=== PATIENT | male | born 1985 | race Caucasian/White ===

== ENCOUNTER → 2016-11-13 | Outpatient (CLI) | payer BC ==
[~2016-11-13] MED LIST: DIPH25TA24 PO
--- NOTE | 2016-11-13 08:16 | DIAGNOSTIC IMAGING REPORT ---
DOUBLE CONTRAST BARIUM ESOPHAGRAM CLINICAL HISTORY: Globus sensation. COMPARISON STUDY: No priors. TECHNIQUE: A standard air contrast barium esophagram is performed. Multiple spot images of the esophagus are acquired both upright and prone. FINDINGS: The patient swallowed barium and the barium pill without difficulty. The mucosal pattern is normal. There is no evidence of intrinsic or extrinsic mass lesion. No aspiration was seen. The gastroesophageal junction distended normally. No gastroesophageal reflux could be elicited by having the patient perform the Valsalva maneuver. Fluoroscopy time: 1 minute. Fluoroscopic images: 23 IMPRESSION: Normal barium esophagram. Electronically signed by: Bhargav Sam M.D. 11/13/2016 8:14 AM Dictated Date/Time: 11/13/2016 8:13 AM
== END | disposition home or self-care (01) ==
LOC: C.RAD 07:25
PROVIDERS: ATTEND Nurse Practitioner Family
DX: F45.8 Other somatoform disorders (principal)

== ENCOUNTER 2018-08-08 12:47 | Observation (INO) ==
[2018-08-08 14:57] LABS: Basophils # (auto) 0.02 K/uL (0-0.2); Basophils % (auto) 0.3 %; Eosinophils # (auto) 0.03 K/uL (0-0.5); Eosinophils % (auto) 0.4 %; Hematocrit (blood only) 47.8 % (42-52); Hemoglobin 17.5 g/dL (14.0-18.0); Immature Granulocytes # (auto) 0.01 K/uL (0.00-0.02); Immature Granulocytes % (auto) 0.1 %; Lymphocytes # (auto) 1.07 K/uL (1.2-3.4); Lymphocytes % (auto) 15.5 %; Mean Corpuscular Hgb Conc 36.6 g/dL (32-36); Mean Corpuscular Volume 89.5 fL (80-100); Mean Platelet Volume 9.7 fL (7.4-10.4); Monocytes # (auto) 0.53 K/uL (0.11-0.59); Monocytes % (auto) 7.7 %; Neutrophils # (auto) 5.24 K/uL (1.4-6.5); Platelet Count 179 K/uL (130-400); RDW Coefficient of Variation 12.3 % (11.5-14.5); RDW Standard Deviation 39.6 fL (36.4-46.3); Red Blood Count 5.34 M/uL (4.7-6.1)
[2018-08-08 15:05] LABS: Albumin Level 4.3 gm/dl (3.4-5.0); BUN Creatinine Ratio 13.6 (10-20); Calcium 9.3 mg/dl (8.5-10.1); Creatinine Clr Calc Pharmacy 126.8 ml/min; Est GFR (African American) 123.7; Est GFR (Non-African American) 106.7
[2018-08-08 15:08] LABS: Albumin Globulin Ratio 1.1 (0.9-2); Bilirubin,Total 0.7 mg/dl (0.2-1); Globulin 3.9 gm/dl (2.5-4.0); Total Protein 8.2 gm/dl (6.4-8.2)
[2018-08-08] MEDS ORDERED: SODIUM CHLORIDE 0.9% 1000ML 1,000 ML IV ONE (15:11)
[2018-08-08] MEDS ORDERED: raNITIdine 50 MG/102 ML BAG IV STA (15:11)
[2018-08-08] MEDS ORDERED: DEXAMETHASONE **PF** INJ 10 MG/ML VIAL IV ONE (15:11)
[2018-08-08] MEDS ORDERED: DiphenhydrAMINE HCL 50 MG/ML VIAL IV STA (15:11)
--- NOTE | 2018-08-08 15:36 | Emergency Department Note ---
ED Provider Note CHIEF COMPLAINT: URI symptoms, facial swelling HISTORY OF PRESENTING ILLNESS: This is a 33-year-old male who presents to the emergency department with complaint of cough and cold symptoms for the past 2 days facial swelling that started this morning. Patient states that he had difficulty sleeping last night and when he woke up this morning he noticed that his lower lip was swollen. He took some Benadryl and went back to bed. He says when he woke up around noon today his whole face was swollen, he again took about 25 mg of Benadryl. He has had symptoms of cough, congestion, sore throat, fevers/chills and body aches. There have been several people at home sick with the same types of symptoms. He states that he had a similar reaction a few years ago when he got sick with a cold and developed facial swelling at that time, he states he was treated with Benadryl and a steroid. He denies any hives, rash, or itching. He denies any throat swelling or difficulty breathing , wheezing, chest pain or tightness, dizziness or syncope. He denies any headaches, vision changes, neck pain or stiffness, back pain, abdominal pain, nausea or vomiting, urinary symptoms. REVIEW OF SYSTEMS: A complete 10 point review of systems was reviewed with the patient with pertinent positives and negatives as per history of present illness. All else were negative. PAST MEDICAL HISTORY: Anxiety, history of wisdom tooth extraction, history of vasectomy SOCIAL HISTORY: Lives at home with family, he denies tobacco use ALLERGIES: No known allergies PHYSICAL EXAM: CONSTITUTIONAL: Pleasant and cooperative. No acute distress. Well appearing and well nourished. HEENT: Normocephalic, atraumatic. Mild bilateral periorbital swelling noted. Moderate swelling of the lower lip, upper lip appears normal. No tongue swelling. PERRL, EOMI. TMs normal. Pharynx is erythematous with mild bilateral tonsillar edema, but no exudate seen. No uvular deviation, no trismus. Airway patent. Moist mucous membranes. NECK: Supple, full active range of motion without discomfort. No stridor on auscultation. Bilateral submandibular and anterior cervical adenopathy, tender to palpation. No posterior adenopathy. No nuchal rigidity or meningismus. RESPIRATORY: Clear to auscultation bilaterally with no wheezing, crackles, rhonchi or stridor. Equal expansion bilaterally. CARDIOVASCULAR: Regular rate and rhythm with no murmurs, rubs or gallops. Normal peripheral perfusion. No edema. GASTROINTESTINAL: Soft, nontender, nondistended. No palpable masses or HSM. Bowel sounds present in all quadrants. MUSCULOSKELETAL: Full range of motion of all joints without discomfort. INTEGUMENTARY: No rash or other significant dermatologic conditions noted. NEUROLOGIC: Alert and oriented X 4 with normal affect. No focal neurologic deficits noted. Normal strength and sensation intact light touch in all 4 extremities. Normal speech. Normal gait observed. ED COURSE AND MEDICAL DECISION MAKING: CC: Patient presenting with complaint of URI symptoms, facial swelling DIFFERENTIAL DIAGNOSIS: Includes, but not limited to allergic reaction, anaphylaxis, angioedema, viral URI, bronchitis, strep pharyngitis, mononucleosis , mumps, influenza, among others. INTERPRETATION OF LABS: No leukocytosis, no anemia, normal platelets, no significant electrolyte abnormalities, normal renal function, normal liver enzymes UA negative. Influenza negative. Rapid strep negative, culture pending. Monospot negative. IMAGING: Study: CT soft tissue neck HISTORY:: Abscess. Pain. Edema. FINDINGS: The major salivary glands are symmetric and unremarkable. The parotid and submandibular glands are unremarkable. Several reactive cervical nodes measuring up to 1.5 cm are present bilaterally. Moderate soft tissue edematous change of the posterior oropharynx and hypopharyngeal region. Moderate narrowing of the airway. No significant hypopharyngeal distention. The glottic and subglottic regions are unremarkable. No evidence for drainable abscess or collection. The pulmonary apices are considered clear. IMPRESSION: 1. Nonspecific soft tissue edematous change of the posterior oral and hypopharynx. 2. No evidence for abscess or collection. 3. Mild reactive cervical adenitis. 4. Mild/moderate narrowing of the hypopharyngeal airway MEDICATION RECONCILIATION: I attest that I have personally reviewed the patient 's current medication list. INITIAL VITAL SIGNS REVIEW: I reviewed the patient's initial vital signs and interpret them as follows: T: Afebrile; BP: Hypertensive; HR: Mildly tachycardic; RR: Within normal limits; Pulse Ox: Within normal limits on room air. Blood pressure screening: The patient was found to have an elevated blood pressure, which was felt to be situational. MDM SUMMARY: Patient was evaluated at bedside, history and physical exam performed. Patient is alert and oriented, in no acute distress, resting calmly in stretcher. No respiratory distress. Lungs are clear. No stridor. Airway is patent. There is mild bilateral periorbital swelling and moderate lower lip swelling. Orders were placed at bedside for labs, IV fluid bolus for hydration, IV Benadryl 50 mg, IV ranitidine 50 mg, and IV Decadron 10 mg. Labs reviewed as above and unremarkable. Patient has been reassessed multiple times during his emergency department stay , he has remained hemodynamically stable and afebrile. The patient has been monitored for several hours and continues to improve after the above treatment, but does have some residual lip and facial swelling. He continues to deny any throat tightness, wheezing, or shortness of breath. Patient discussed with Dr. Abernathy, who also evaluated the patient. He did recommend performing additional testing with a CT soft tissue neck, and felt the patient should be admitted for observation due to persistent symptoms of angioedema. CT shows no evidence of abscess or fluid collection, reactive cervical adenitis , and mild to moderate narrowing of the hypopharyngeal airway. Dr. Abernathy spoke with Dr. Packer, [facility] Hospitalist, who agreed to admit the patient for further observation and workup of angioedema. Patient reassessed multiple times throughout ED stay, he has remained hemodynamically stable and afebrile, and his swelling has improved, though still not fully resolved. The patient and his were updated on all results and plan for admission, they verbalized understanding and were agreeable to this plan. Patient was stable at time of admission. The chart was completed utilizing [employer] Speech voice recognition software. Grammatical errors, random word insertions, pronoun errors, and incomplete sentences are an occasional consequence of this system due to software limitations, ambient noise, and hardware issues. Any formal questions or concerns about the content, text, or information contained within the body of this dictation should be directly addressed to the nurse practitioner for clarification. Impression & Plan Angioedema Past Med/Surg History Social History Current Living Situation: Spouse Other Information That Helps Us Care for You: No Feels Safe at Home: Yes Safety Concerns: Feels Safe At This Time Smoking Status: Never smoker Do You Dip or Chew Tobacco: No Second Hand Exposure: No Hx Alcohol Use: No Hx Substance Use: No Beliefs That Will Affect Care: None Preferred Language: Bahamian Communication Ability: Effective Sap Portal Developer Required: No Results & Data Vital Signs Vital Signs - 24 hr 08/08/18 21:00 08/08/18 21:01 08/08/18 21:31 Temperature Temperature Source Pulse Rate 117 H 113 H 110 H Pulse Rate [Right Finger] Respiratory Rate 18 16 15 Respiratory Effort / Characteristics Respiratory Depth Respiratory Pattern Blood Pressure 136/94 146/98 H Blood Pressure [Left Arm] Blood Pressure Mean 108 114 Blood Pressure Mean [Left Arm] Blood Pressure Position [Left Arm] Pulse Oximetry 92 93 94 Oxygen Delivery Method 08/08/18 21:40 08/08/18 22:00 08/08/18 22:02 Temperature Temperature Source Pulse Rate 116 H 114 H 105 H Pulse Rate [Right Finger] Respiratory Rate 14 14 16 Respiratory Effort / Characteristics Respiratory Depth Respiratory Pattern Blood Pressure 137/88 Blood Pressure [Left Arm] Blood Pressure Mean 104 Blood Pressure Mean [Left Arm] Blood Pressure Position [Left Arm] Pulse Oximetry 95 95 94 Oxygen Delivery Method Room Air 08/08/18 22:48 08/09/18 07:13 08/09/18 15:14 Temperature 36.6 C 36.4 C L 36.5 C Temperature Source Oral Oral Oral Pulse Rate Pulse Rate [Right Finger] 106 H 90 106 H Respiratory Rate 18 18 20 Respiratory Effort / Characteristics Non-Labored Spontaneous Respiratory Depth Normal Respiratory Pattern Regular Blood Pressure Blood Pressure [Left Arm] 126/74 121/81 133/77 Blood Pressure Mean Blood Pressure Mean [Left Arm] 91 94 95 Blood Pressure Position [Left Arm] Lying Pulse Oximetry 94 94 94 Oxygen Delivery Method Room Air Room Air Laboratory Data Result diagrams: 08/09/18 08:50 08/09/18 08:50 Lab Results 08/08/18 08/08/18 08/08/18 Range/Units 14:10 14:10 14:10 WBC 6.90 (4.8-10.8) K/uL RBC 5.34 (4.7-6.1) M/uL Hgb 17.5 (14.0-18.0) g/dL Hct 47.8 (42-52) % MCV 89.5 (80-100) fL MCH 32.8 (25-34) pg MCHC 36.6 H (32-36) g/dL RDW Std Deviation 39.6 (36.4-46.3) fL RDW Coeff of Waqar 12.3 (11.5-14.5) % Plt Count 179 (130-400) K/uL MPV 9.7 (7.4-10.4) fL Immature Gran % (Auto) 0.1 % Neut % (Auto) 76.0 % Lymph % (Auto) 15.5 % [place] % (Auto) 7.7 % Eos % (Auto) 0.4 % Baso % (Auto) 0.3 % Immature Gran # (Auto) 0.01 (0.00-0.02) K/uL Neut # (Auto) 5.24 (1.4-6.5) K/uL Lymph # (Auto) 1.07 L (1.2-3.4) K/uL [place] # (Auto) 0.53 (0.11-0.59) K/uL Eos # (Auto) 0.03 (0-0.5) K/uL Baso # (Auto) 0.02 (0-0.2) K/uL PT (9.0-12.0) Seconds INR (0.9-1.1) Sodium 137 (136-145) mmol/L Potassium 4.0 (3.5-5.1) mmol/L Chloride 103 (98-107) mmol/L Carbon Dioxide 28 (21-32) mmol/L Anion Gap 6.0 (3-11) BUN 13 (7-18) mg/dl Creatinine 0.93 (0.6-1.4) mg/dl Est Cr Clr Drug Dosing 126.8 ml/min Est GFR ( Amer) 123.7 Est GFR (Non-Af Amer) 106.7 BUN/Creatinine Ratio 13.6 (10-20) Glucose 92 (70-99) mg/dl Calcium 9.3 (8.5-10.1) mg/dl Total Bilirubin 0.7 (0.2-1) mg/dl AST 19 (15-37) U/L ALT 35 (12-78) U/L Alkaline Phosphatase 86 (45-117) U/L Total Protein 8.2 (6.4-8.2) gm/dl Albumin 4.3 (3.4-5.0) gm/dl Globulin 3.9 (2.5-4.0) gm/dl Albumin/Globulin Ratio 1.1 (0.9-2) Urine Color Urine Appearance (Clear) Urine pH (4.5-7.5) Ur Specific [place] (1.000-1.030) Urine Protein (Negative) Urine Glucose (UA) (Negative) Urine Ketones (Negative) Urine Blood (Negative) Urine Nitrite (Negative) Urine Bilirubin (Negative) Urine Urobilinogen (Negative) Ur Leukocyte Esterase (Negative) Urine RBC (0-4) /hpf Urine WBC (0-5) /hpf Ur Epithelial Cells (0-5) /lpf Urine Bacteria (Negative) Monoscreen Negative (Negative) Influenza Type A Ag (Neg) Influenza Type B Ag (Neg) 08/08/18 08/08/18 08/09/18 Range/Units 15:25 16:41 08:50 WBC (4.8-10.8) K/uL RBC (4.7-6.1) M/uL Hgb (14.0-18.0) g/dL Hct (42-52) % MCV (80-100) fL MCH (25-34) pg MCHC (32-36) g/dL RDW Std Deviation (36.4-46.3) fL RDW Coeff of Waqar (11.5-14.5) % Plt Count (130-400) K/uL MPV (7.4-10.4) fL Immature Gran % (Auto) % Neut % (Auto) % Lymph % (Auto) % [place] % (Auto) % Eos % (Auto) % Baso % (Auto) % Immature Gran # (Auto) (0.00-0.02) K/uL Neut # (Auto) (1.4-6.5) K/uL Lymph # (Auto) (1.2-3.4) K/uL [place] # (Auto) (0.11-0.59) K/uL Eos # (Auto) (0-0.5) K/uL Baso # (Auto) (0-0.2) K/uL PT 12.9 H (9.0-12.0) Seconds INR 1.3 H (0.9-1.1) Sodium (136-145) mmol/L Potassium (3.5-5.1) mmol/L Chloride (98-107) mmol/L Carbon Dioxide (21-32) mmol/L Anion Gap (3-11) BUN (7-18) mg/dl Creatinine (0.6-1.4) mg/dl Est Cr Clr Drug Dosing ml/min Est GFR ( Amer) Est GFR (Non-Af Amer) BUN/Creatinine Ratio (10-20) Glucose (70-99) mg/dl Calcium (8.5-10.1) mg/dl Total Bilirubin (0.2-1) mg/dl AST (15-37) U/L ALT (12-78) U/L Alkaline Phosphatase (45-117) U/L Total Protein (6.4-8.2) gm/dl Albumin (3.4-5.0) gm/dl Globulin (2.5-4.0) gm/dl Albumin/Globulin Ratio (0.9-2) Urine Color Yellow Urine Appearance Clear (Clear) Urine pH 6.5 (4.5-7.5) Ur Specific [place] <= 1.005 (1.000-1.030) Urine Protein Negative (Negative) Urine Glucose (UA) Negative (Negative) Urine Ketones Negative (Negative) Urine Blood Trace H (Negative) Urine Nitrite Negative (Negative) Urine Bilirubin Negative (Negative) Urine Urobilinogen Negative (Negative) Ur Leukocyte Esterase Negative (Negative) Urine RBC 0-4 (0-4) /hpf Urine WBC 0-5 (0-5) /hpf Ur Epithelial Cells 0-5 (0-5) /lpf Urine Bacteria Negative (Negative) Monoscreen (Negative) Influenza Type A Ag Neg for Influ A (Neg) Influenza Type B Ag Neg for Influ B (Neg) 08/09/18 08/09/18 Range/Units 08:50 08:50 WBC 8.93 (4.8-10.8) K/uL RBC 5.20 (4.7-6.1) M/uL Hgb 17.1 (14.0-18.0) g/dL Hct 46.3 (42-52) % MCV 89.0 (80-100) fL MCH 32.9 (25-34) pg MCHC 36.9 H (32-36) g/dL RDW Std Deviation 39.0 (36.4-46.3) fL RDW Coeff of Waqar 12.1 (11.5-14.5) % Plt Count 202 (130-400) K/uL MPV 9.7 (7.4-10.4) fL Immature Gran % (Auto) % Neut % (Auto) % Lymph % (Auto) % [place] % (Auto) % Eos % (Auto) % Baso % (Auto) % Immature Gran # (Auto) (0.00-0.02) K/uL Neut # (Auto) (1.4-6.5) K/uL Lymph # (Auto) (1.2-3.4) K/uL [place] # (Auto) (0.11-0.59) K/uL Eos # (Auto) (0-0.5) K/uL Baso # (Auto) (0-0.2) K/uL PT (9.0-12.0) Seconds INR (0.9-1.1) Sodium 137 (136-145) mmol/L Potassium 3.9 (3.5-5.1) mmol/L Chloride 103 (98-107) mmol/L Carbon Dioxide 29 (21-32) mmol/L Anion Gap 5.0 (3-11) BUN 17 (7-18) mg/dl Creatinine 0.97 (0.6-1.4) mg/dl Est Cr Clr Drug Dosing 120.0 ml/min Est GFR ( Amer) 117.6 Est GFR (Non-Af Amer) 101.4 BUN/Creatinine Ratio 17.2 (10-20) Glucose 137 H (70-99) mg/dl Calcium 9.3 (8.5-10.1) mg/dl Total Bilirubin (0.2-1) mg/dl AST (15-37) U/L ALT (12-78) U/L Alkaline Phosphatase (45-117) U/L Total Protein (6.4-8.2) gm/dl Albumin (3.4-5.0) gm/dl Globulin (2.5-4.0) gm/dl Albumin/Globulin Ratio (0.9-2) Urine Color Urine Appearance (Clear) Urine pH (4.5-7.5) Ur Specific [place] (1.000-1.030) Urine Protein (Negative) Urine Glucose (UA) (Negative) Urine Ketones (Negative) Urine Blood (Negative) Urine Nitrite (Negative) Urine Bilirubin (Negative) Urine Urobilinogen (Negative) Ur Leukocyte Esterase (Negative) Urine RBC (0-4) /hpf Urine WBC (0-5) /hpf Ur Epithelial Cells (0-5) /lpf Urine Bacteria (Negative) Monoscreen (Negative) Influenza Type A Ag (Neg) Influenza Type B Ag (Neg) Administered Medications Acetaminophen (Tylenol) 650 mg PO Q4H PRN PRN Reason: pain/fever Stop: 09/07/18 22:44 Last Admin: 08/09/18 06:33 Dose: 650 mg Admin: 08/08/18 23:57 Dose: 650 mg Fexofenadine HCl (Marie) 180 mg PO QAM EMILE Stop: 09/08/18 08:59 Last Admin: 08/09/18 08:22 Dose: 180 mg Heparin Sodium (Porcine) (Heparin Sodium (Porcine)) 5,000 units SQ Q12H EMILE Stop: 09/08/18 08:59 Last Admin: 08/09/18 08:32 Dose: Not Given Famotidine 20 mg/ Syringe 5 mls @ 2.5 mls/min IV Q12H EMILE Stop: 09/08/18 00:00 Last Admin: 08/09/18 12:01 Dose: 2.5 mls/min Admin: 08/09/18 00:03 Dose: 2.5 mls/min Discontinued Medications Dexamethasone Sodium Phosphate (Decadron Pf) 10 mg IV NOW ONE Stop: 08/08/18 15:12 Last Admin: 08/08/18 15:22 Dose: 10 mg Diphenhydramine HCl (Benadryl) 50 mg IV NOW STA Stop: 08/08/18 15:12 Last Admin: 08/08/18 15:21 Dose: 50 mg Ranitidine HCl (Zantac) 50 mg in 102 mls @ 200 mls/hr IV NOW STA Stop: 08/08/18 15:41 Last Infusion: 08/08/18 16:00 Dose: 0 mls/hr Admin: 08/08/18 15:27 Dose: 200 mls/hr Sodium Chloride (Nss 1000ml) 1,000 mls @ 999 mls/hr IV .Q1H1M ONE Stop: 08/08/18 16:11 Last Infusion: 08/08/18 16:03 Dose: 0 mls/hr Admin: 08/08/18 15:21 Dose: 999 mls/hr Methylprednisolone 60 mg/ (Syringe) 0.96 mls @ 1.92 mls/min IV Q8H EMILE Stop: 09/07/18 22:59 Last Admin: 08/09/18 06:34 Dose: 1.92 mls/min Admin: 08/08/18 23:56 Dose: 1.92 mls/min Ioversol (Optiray 320 125ml) 115 ml IV ONCE PRN PRN Reason: Interaction Checking Stop: 08/12/18 19:06 Last Admin: 08/08/18 19:08 Dose: 115 ml Discharge Plan Visit Data *Final* Discharge Date/Time: 08/08/18 22:06 Chief Complaint: Allergic Reaction Stated Complaint: ALLERGIC REACTION, FACIAL SWELLING ED Provider: Erasto Abernathy ED Midlevel Provider: Tisha Herring Discharge Problem: Angioedema Patient Disposition: Admitted As Inpatient Discharge Instructions Interventions: ED Discharge Assessment Last Done: 08/08/18 22:06
[2018-08-08 16:56] LABS: Appearance Urine Clear (Clear); Bilirubin Urine Negative (Negative); Color Urine Yellow; Glucose Urine UA Negative (Negative); Ketones Urine Negative (Negative); Leukocyte Esterase Urine Negative (Negative); Nitrite Urine Negative (Negative); Protein Urine Negative (Negative); Specific Gravity Urine <= 1.005 (1.000-1.030); Urobilinogen Urine Negative (Negative); pH Urine 6.5 (4.5-7.5)
[2018-08-08 17:01] LABS: Bacteria Urine Negative (Negative); RBC Urine 0-4 /hpf (0-4); WBC Urine 0-5 /hpf (0-5)
[2018-08-08] MEDS ORDERED: OPTIRAY 320 125ml IV PRN (19:07)
--- NOTE | 2018-08-08 19:14 | CT Scan Report ---
Study: CT soft tissue neck HISTORY:: Abscess. Pain. Edema. FINDINGS: The major salivary glands are symmetric and unremarkable. The parotid and submandibular gla nds are unremarkable. Several reactive cervical nodes measuring up to 1.5 cm are present bilaterally. Moderate soft tissue edematous change of the posterior oropharynx and hypopharyngeal region. Moderate narrowing of the airway. No significant hypopharyngeal distention. The glottic and subglottic regions are unremarkable. No evidence for drainable abscess or collection. The pulmonary apices are considered clear. IMPRESSION: 1. Nonspecific soft tissue edematous change of the posterior oral and hypopharynx. 2. No evidence for abscess or collection. 3. Mild reactive cervical adenitis. 4. Mild/moderate narrowing of the hypopharyngeal airway Electronically signed by: Ac Richmond M.D. 08/08/2018 7:13 PM
--- NOTE | 2018-08-08 21:24 | History & Physical Report ---
Date of Service August 08, 2018 Assessment & Plan (1) Angioedema: -Admit to 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 Elvira Patterson 33-year-old male who presents to the ED with a chief complaint of lip, eye, facial swelling. Patient reports he developed cold-like symptoms a couple of days ago with sinus congestion, fever, body aches and then yesterday evening developed some lower lip swelling. He took a Benadryl and then fell asleep. He reports that when he woke up this morning, the lower lip swelling was a lot worse and he also had swelling around his eyes and behind his ears down into his neck. He took additional Benadryl and came to the ER for further evaluation. Patient denies shortness of breath, wheezing, difficulty swallowing. No chest pain or pressure. He denies lightheadedness, dizziness, diaphoresis, syncopal events. No abdominal pain, nausea, vomiting, diarrhea. He denies any urinary symptoms. In the ED, patient was given dexamethasone, Benadryl, ranitidine, IVF with improvement of his symptoms. CT neck showed nonspecific soft tissue edematous change of the posterior oral and hypopharynx. Allergies Allergy/AdvReac Type Severity Reaction Status Date / Time No Known Allergies Allergy Verified 08/08/18 15:34 Home Medications Home Medications Medication Instructions Recorded Confirmed Type fluticasone 2 spray INTRANASAL DAILY 08/08/18 08/08/18 History ibuprofen [Advil] 400 mg PO Q6H PRN 08/08/18 08/08/18 History loratadine-pseudoephedrine 1 tab PO DAILY PRN 08/08/18 08/08/18 History [Claritin-D 24 Hour] Past Med/Surg History Medical History H/O wisdom tooth extraction (Chronic) Anxiety (Chronic) Surgical History H/O vasectomy (Chronic) Family History Sister Leukemia in remission Grandfather Heart attack Social History Feels Safe at Home: Yes Smoking Status: Never smoker Hx Alcohol Use: No Preferred Language: Mexican Review of Systems ROS per HPI, all other systems reviewed and negative Physical Exam 2 Vital Signs (Past 24 Hours): Last Vital Signs Temp 37.1 C 08/08/18 13:46 Pulse 117 H 08/08/18 21:00 Resp 18 08/08/18 21:00 BP 126/96 08/08/18 20:31 Pulse Ox 92 08/08/18 21:00 Constitutional: WD/WN, vitals as above Eyes: PERRL, conjunctivae normal, anicteric sclerae + eyelid abnormality ( Mild swelling bilaterally) ENMT: Ears: no external ear abnormality Nose: no external nose abnormality Mouth: + lip abnormality (Lower lip edematous); no tongue abnormality (No tongue swelling noted) Respiratory: normal respiratory effort, lungs clear to auscultation Cardiovascular: Rate/Rhythm: regular rhythm and + tachycardic Vessels: normal peripheral pulses Extremities: no edema Gastrointestinal (Abdomen): normal bowel sounds, soft, nontender, no hepatosplenomegaly Musculoskeletal: no cyanosis or clubbing, extremities motor strength 5/5 Skin: no rashes, warm and dry Neurologic: PERRL, EOMI, accommodation nl, no face palsy, no dysarthria Psychiatric: A+Ox3, euthymic affect Results & Data Laboratory Results Laboratory Last Values WBC 6.90 K/uL (4.8-10.8) 08/08/18 14:10 RBC 5.34 M/uL (4.7-6.1) 08/08/18 14:10 Hgb 17.5 g/dL (14.0-18.0) 08/08/18 14:10 Hct 47.8 % (42-52) 08/08/18 14:10 MCV 89.5 fL (80-100) 08/08/18 14:10 MCH 32.8 pg (25-34) 08/08/18 14:10 MCHC 36.6 g/dL (32-36) H 08/08/18 14:10 RDW Std Deviation 39.6 fL (36.4-46.3) 08/08/18 14:10 RDW Coeff of Waqar 12.3 % (11.5-14.5) 08/08/18 14:10 Plt Count 179 K/uL (130-400) 08/08/18 14:10 MPV 9.7 fL (7.4-10.4) 08/08/18 14:10 Immature Gran % (Auto) 0.1 % 08/08/18 14:10 Neut % (Auto) 76.0 % 08/08/18 14:10 Lymph % (Auto) 15.5 % 08/08/18 14:10 [place] % (Auto) 7.7 % 08/08/18 14:10 Eos % (Auto) 0.4 % 08/08/18 14:10 Baso % (Auto) 0.3 % 08/08/18 14:10 Immature Gran # (Auto) 0.01 K/uL (0.00-0.02) 08/08/18 14:10 Neut # (Auto) 5.24 K/uL (1.4-6.5) 08/08/18 14:10 Lymph # (Auto) 1.07 K/uL (1.2-3.4) L 08/08/18 14:10 [place] # (Auto) 0.53 K/uL (0.11-0.59) 08/08/18 14:10 Eos # (Auto) 0.03 K/uL (0-0.5) 08/08/18 14:10 Baso # (Auto) 0.02 K/uL (0-0.2) 08/08/18 14:10 Sodium 137 mmol/L (136-145) 08/08/18 14:10 Potassium 4.0 mmol/L (3.5-5.1) 08/08/18 14:10 Chloride 103 mmol/L (98-107) 08/08/18 14:10 Carbon Dioxide 28 mmol/L (21-32) 08/08/18 14:10 Anion Gap 6.0 (3-11) 08/08/18 14:10 BUN 13 mg/dl (7-18) 08/08/18 14:10 Creatinine 0.93 mg/dl (0.6-1.4) 08/08/18 14:10 Est Cr Clr Drug Dosing 126.8 ml/min 08/08/18 14:10 Est GFR ( Amer) 123.7 08/08/18 14:10 Est GFR (Non-Af Amer) 106.7 08/08/18 14:10 BUN/Creatinine Ratio 13.6 (10-20) 08/08/18 14:10 Glucose 92 mg/dl (70-99) 08/08/18 14:10 Calcium 9.3 mg/dl (8.5-10.1) 08/08/18 14:10 Total Bilirubin 0.7 mg/dl (0.2-1) 08/08/18 14:10 AST 19 U/L (15-37) 08/08/18 14:10 ALT 35 U/L (12-78) 08/08/18 14:10 Alkaline Phosphatase 86 U/L (45-117) 08/08/18 14:10 Total Protein 8.2 gm/dl (6.4-8.2) 08/08/18 14:10 Albumin 4.3 gm/dl (3.4-5.0) 08/08/18 14:10 Globulin 3.9 gm/dl (2.5-4.0) 08/08/18 14:10 Albumin/Globulin Ratio 1.1 (0.9-2) 08/08/18 14:10 Urine Color Yellow 08/08/18 16:41 Urine Appearance Clear (Clear) 08/08/18 16:41 Urine pH 6.5 (4.5-7.5) 08/08/18 16:41 Ur Specific [place] <= 1.005 (1.000-1.030) 08/08/18 16:41 Urine Protein Negative (Negative) 08/08/18 16:41 Urine Glucose (UA) Negative (Negative) 08/08/18 16:41 Urine Ketones Negative (Negative) 08/08/18 16:41 Urine Blood Trace (Negative) H 08/08/18 16:41 Urine Nitrite Negative (Negative) 08/08/18 16:41 Urine Bilirubin Negative (Negative) 08/08/18 16:41 Urine Urobilinogen Negative (Negative) 08/08/18 16:41 Ur Leukocyte Esterase Negative (Negative) 08/08/18 16:41 Urine RBC 0-4 /hpf (0-4) 01/03/19 16:41 Urine WBC 0-5 /hpf (0-5) 08/08/18 16:41 Ur Epithelial Cells 0-5 /lpf (0-5) 08/08/18 16:41 Urine Bacteria Negative (Negative) 08/08/18 16:41 Monoscreen Negative (Negative) 08/08/18 14:10 Influenza Type A Ag Neg for Influ A (Neg) 08/08/18 15:25 Influenza Type B Ag Neg for Influ B (Neg) 08/08/18 15:[address] NECK SOFT TISSUE IMPRESSION: 1. Nonspecific soft tissue edematous change of the posterior oral and hypopharynx. 2. No evidence for abscess or collection. 3. Mild reactive cervical adenitis. 4. Mild/moderate narrowing of the hypopharyngeal airway Code Status & VTE Plan VTE Prophylaxis Plan VTE Prophylaxis will be ordered: Yes Supervising Physician Co-Signing Physician Notes I saw this patient with the CARPENTER RAILCAR, I participated in the history, physical, review of systems, and physical exam. I reviewed the medications with the patient and the CARPENTER RAILCAR and helped reconcile the medications. I helped take a detailed family and social history as well. I formulated the assessment and plan personally with the CARPENTER RAILCAR and went over it with the patient.
[2018-08-08] MEDS ORDERED: FAMOTIDINE 20MG/5ML IV PUSH IV SCH (22:45)
[2018-08-08] MEDS ORDERED: ONDANSETRON INJ 2 MG/ML 2 ML VIAL IV PRN (22:45)
[2018-08-08] MEDS: methylPREDNISolone 60 MG in SYRINGE 0 ML IV SCH (23:56)
[2018-08-08] MEDS: ACETAMINOPHEN 325 MG TAB PO PRN (23:57)
[2018-08-09] MEDS: FAMOTIDINE 20 MG in SYRINGE 3 ML IV SCH ×3 (00:03→23:43)
--- NOTE | 2018-08-09 00:45 | Emergency Department Note ---
ED Visit Note I did evaluate and examine this patient myself. I did guide management for the patient. I agree with the PA's assessment as discussed. Please see the PAs dictation for further details. I did independently review the CT scan and blood work. Patient is presenting with angioedema. He had a similar episode 4 years ago without known etiology. He had significant angioedema today which is reduced here with IV Benadryl and Solu-Medrol. He does have persistent swelling to his lips and is complaining of discomfort in his stroke. CT scan of the soft tissue neck shows moderate airway edema. He is not stridulous or in any respiratory distress. I did recommend hospitalization given his symptoms. I did discuss case with the hospitalist and bilingual patient support caseworker. .
[2018-08-09] MEDS: ACETAMINOPHEN 325 MG TAB PO PRN (06:33)
[2018-08-09] MEDS: methylPREDNISolone 60 MG in SYRINGE 0 ML IV SCH ×2 (06:34→14:24)
[2018-08-09] MEDS: FEXOFENADINE HCL 180 MG TAB PO SCH (08:22)
[2018-08-09] MEDS: HEPARIN SOD 5,000 UNIT/0.5 ML VIAL SQ SCH ×2 (08:32→20:50)
[2018-08-09 09:09] LABS: Hematocrit (blood only) 46.3 % (42-52); Hemoglobin 17.1 g/dL (14.0-18.0); Mean Corpuscular Hgb Conc 36.9 g/dL (32-36); Mean Platelet Volume 9.7 fL (7.4-10.4); Platelet Count 202 K/uL (130-400); RDW Coefficient of Variation 12.1 % (11.5-14.5); White Blood Count 8.93 K/uL (4.8-10.8)
[2018-08-09 09:16] LABS: INR 1.3 (0.9-1.1); Prothrombin Time 12.9 Seconds (9.0-12.0)
[2018-08-09 09:44] LABS: BUN Creatinine Ratio 17.2 (10-20); Calcium 9.3 mg/dl (8.5-10.1); Est GFR (African American) 117.6; Est GFR (Non-African American) 101.4; Potassium 3.9 mmol/L (3.5-5.1)
[2018-08-09] MEDS ORDERED: ALPRAZolam 0.5 MG TABLET PO PRN (14:58)
--- NOTE | 2018-08-09 18:41 | Hospitalist Progress Note ---
Date of Service August 09, 2018 Assessment & Plan (1) Angioedema: Patient is a 33 yr male who presented with lip, eye, facial swelling after developing cold-like symptoms 2 days ago Reports similar episode 3 years ago --He denies any triggering factors --Neck CT: Nonspecific soft tissue edematous change of the posterior oral and hypopharynx. No evidence for abscess or collection. Mild reactive cervical adenitis. Mild/moderate narrowing of the hypopharyngeal airway Negative Influenza, [place] screen --Denies any swallowing/breathing issues --Continue IV solu-medrol, IV ranitidine, antihistime --C1 esterase inhibitor pending --Patient would benefit from evaluation by transplant immunologist as outpatient Sinus Tachycardia Monitor (2) DVT prophylaxis: SQ heparin Subjective Patient is seen and examined at bedside Facial swelling improved Still has some lower lip swelling Denies chest pain, dyspnea, dizziness, trouble swallowing Reports getting anxious from steroids No other complaints Physical Exam 2 Vital Signs (Past 24 Hours): Last Vital Signs Temp 36.5 C 08/09/18 15:14 Pulse 106 H 08/09/18 15:14 Resp 20 08/09/18 15:14 BP 133/77 08/09/18 15:14 Pulse Ox 94 08/09/18 15:14 Physical Exam: Physical Exam: Vitals signs as noted above General Appearance:Moderately built and nourished, no apparent distress Head: normocephalic, Atraumatic, +lower lip swelling, facial swelling improved Eyes: normal inspection, EOMI Neck: supple, Trachea midline Respiratory/Chest: Normal breath sounds, CTA Cardiovascular: S1, S2, No murmur, +Tachycardia Abdomen/GI:Soft, Non tender, Bowel sounds present Extremities/Musculoskelatal:normal inspection, no edema Neurologic/Psych:AAOX3, grossly no focal neurological deficits Skin: normal color, warm Results & Data Laboratory Results Short CBC 08/09/18 Range/Units 08:50 WBC 8.93 (4.8-10.8) K/uL Hgb 17.1 (14.0-18.0) g/dL Hct 46.3 (42-52) % Plt Count 202 (130-400) K/uL BMP 08/09/18 08:50 Sodium 137 Potassium 3.9 Chloride 103 Carbon Dioxide 29 BUN 17 Creatinine 0.97 Glucose 137 H Calcium 9.3 _ (1) Angioedema Encounter type: initial encounter Qualified Code(s): T78.3XXA - Angioneurotic edema, initial encounter
[2018-08-09] MEDS: methylPREDNISolone 40 MG in SYRINGE 0 ML IV SCH (20:47)
[2018-08-10 07:44] LABS: BUN Creatinine Ratio 21.8 (10-20); Calcium 8.9 mg/dl (8.5-10.1); Creatinine Clr Calc Pharmacy 123.8 ml/min; Est GFR (African American) 122.1; Est GFR (Non-African American) 105.4; Magnesium 2.3 mg/dl (1.8-2.4); Potassium 3.9 mmol/L (3.5-5.1)
[2018-08-10] MEDS ORDERED: AMOXICILLIN/CLAVULANATE 875 MG TAB PO SCH (09:30)
[2018-08-10] MEDS: FEXOFENADINE HCL 180 MG TAB PO SCH (10:15)
[2018-08-10] MEDS: HEPARIN SOD 5,000 UNIT/0.5 ML VIAL SQ SCH (10:16)
[2018-08-10] MEDS: methylPREDNISolone 40 MG in SYRINGE 0 ML IV SCH (10:16)
--- NOTE | 2018-08-10 12:09 | Hospitalist Progress Note ---
Date of Service August 10, 2018 Assessment & Plan (1) Angioedema: Patient is a 33 yr male who presented with lip, eye, facial swelling after developing cold-like symptoms 2 days ago Reports similar episode 3 years ago --He denies any triggering factors --Neck CT: Nonspecific soft tissue edematous change of the posterior oral and hypopharynx. No evidence for abscess or collection. Mild reactive cervical adenitis. Mild/moderate narrowing of the hypopharyngeal airway Negative Influenza, [place] screen --Denies any swallowing/breathing issues --Continue IV solu-medrol, IV ranitidine, antihistime --C1 esterase inhibitor and EBV serology pending --Patient would benefit from evaluation by tobacco curer as outpatient --Throat Culture: positive for Group C Beta Strep --Started on Augmentin --plan to discharge home today Sinus Tachycardia Monitor (2) DVT prophylaxis: SQ heparin Subjective Patient is seen and examined at bedside Doing much better today Facial, lip swelling/Sore throat improved Denies any trouble swallowing Denies chest pain, dyspnea, dizziness Slept well overnight No new complaints Physical Exam 2 Vital Signs (Past 24 Hours): Last Vital Signs Temp 36.6 C 08/10/18 07:10 Pulse 77 08/10/18 07:10 Resp 18 08/10/18 07:10 BP 117/66 08/10/18 07:10 Pulse Ox 93 08/10/18 07:10 Physical Exam: Physical Exam: Vitals signs as noted above General Appearance:Moderately built and nourished, no apparent distress Head: normocephalic, Atraumatic, +lower lip swelling, facial swelling much improved Eyes: normal inspection, EOMI Neck: supple, Trachea midline Respiratory/Chest: Normal breath sounds, CTA Cardiovascular: S1, S2, No murmur Abdomen/GI:Soft, Non tender, Bowel sounds present Extremities/Musculoskelatal:normal inspection, no edema Neurologic/Psych:AAOX3, grossly no focal neurological deficits Skin: normal color, warm Results & Data Laboratory Results [facility] 08/10/18 06:38 Sodium 138 Potassium 3.9 Chloride 104 Carbon Dioxide 28 BUN 20 H Creatinine 0.94 Glucose 126 H Calcium 8.9 _ (1) Angioedema Encounter type: initial encounter Qualified Code(s): T78.3XXA - Angioneurotic edema, initial encounter
--- NOTE | 2018-08-10 12:23 | Discharge Summary ---
Date of Service August 10, 2018 Admission HPI Per Admitting Provider 33-year-old male who presents to the ED with a chief complaint of lip, eye, facial swelling. Patient reports he developed cold-like symptoms a couple of days ago with sinus congestion, fever, body aches and then yesterday evening developed some lower lip swelling. He took a Benadryl and then fell asleep. He reports that when he woke up this morning, the lower lip swelling was a lot worse and he also had swelling around his eyes and behind his ears down into his neck. He took additional Benadryl and came to the ER for further evaluation. Patient denies shortness of breath, wheezing, difficulty swallowing. No chest pain or pressure. He denies lightheadedness, dizziness, diaphoresis, syncopal events. No abdominal pain, nausea, vomiting, diarrhea. He denies any urinary symptoms. In the ED, patient was given dexamethasone, Benadryl, ranitidine, IVF with improvement of his symptoms. CT neck showed nonspecific soft tissue edematous change of the posterior oral and hypopharynx. Admission Exam Per Admitting Provider Constitutional: WD/WN, vitals as above Eyes: PERRL, conjunctivae normal, anicteric sclerae + eyelid abnormality ( Mild swelling bilaterally) ENMT: Ears: no external ear abnormality Nose: no external nose abnormality Mouth: + lip abnormality (Lower lip edematous); no tongue abnormality (No tongue swelling noted) Respiratory: normal respiratory effort, lungs clear to auscultation Cardiovascular: Rate/Rhythm: regular rhythm and + tachycardic Vessels: normal peripheral pulses Extremities: no edema Gastrointestinal (Abdomen): normal bowel sounds, soft, nontender, no hepatosplenomegaly Musculoskeletal: no cyanosis or clubbing, extremities motor strength 5/5 Skin: no rashes, warm and dry Neurologic: PERRL, EOMI, accommodation nl, no face palsy, no dysarthria Psychiatric: A+Ox3, euthymic affect Principal Diagnosis Discharge Information Discharge Diagnosis Angioedema Pharyngitis Discharge Goals Decrease discomfort,Improve disease control, Improve function Discharge Activity Limitations Resume your previous activity Discharge Data Allergies Allergy/AdvReac Type Severity Reaction Status Date / Time No Known Allergies Allergy Verified 08/08/18 15:34 Consultations 08/08/18 20:16 ED Decision to Admit Stat Procedures Performed Neck CT: 1. Nonspecific soft tissue edematous change of the posterior oral and hypopharynx. 2. No evidence for abscess or collection. 3. Mild reactive cervical adenitis. 4. Mild/moderate narrowing of the hypopharyngeal airway Ordered Studies 08/08/18 18:21 CT soft tissue neck w con Stat Hospital Course (1) Angioedema: Patient is a 33 yr male who presented with lip, eye, facial swelling after developing cold-like symptoms 2 days ago Reports similar episode 3 years ago Pharyngitis: --He denies any triggering factors --Neck CT: Nonspecific soft tissue edematous change of the posterior oral and hypopharynx. No evidence for abscess or collection. Mild reactive cervical adenitis. Mild/moderate narrowing of the hypopharyngeal airway Negative Influenza, [place] screen --Denies any swallowing/breathing issues --Continue IV solu-medrol, IV ranitidine, antihistime --C1 esterase inhibitor and EBV serology pending --Patient would benefit from evaluation by sliver chopper as outpatient --Throat Culture: positive for Group C Beta Strep --Started on Augmentin --plan to discharge home today Sinus Tachycardia Monitor (2) DVT prophylaxis: SQ heparin Total Time Total Time Spent Total Time Spent (In Minutes): 37 minutes Total Time Includes: Examination of the Patient, Discharge Planning, Medication Reconciliation and Other Discharge Plan Discharge Items Patient Disposition: Home - Self-Care Reason For Visit: ANGIOEDEMA Discharge Diagnosis: Angioedema Pharyngitis Discharge Goals: Decrease discomfort, Improve disease control and Improve function Activity: Resume your previous activity Exercise/Sports: Gradually increase as tolerated Non-emergency contact: Primary Care Provider and Specialist Call non-emergency contact if: you have any medication questions, your symptoms worsen, your pain is not controlled, your pain is worsening, your pain is unusual for you and you have a fever Diet: Regular Addtl Provider Instructions: Follow up with for Primary Care on 08/13/18 at 12:45pm Follow up with your Faculty Instructor as advised Complete the prednisone and antibiotic course as prescribed Seek immediate medical attention if your symptoms reoccur or worsen Prescriptions: New amoxicillin-pot clavulanate 875-125 mg Tablet 1 tab PO BIDM 7 Days Qty: 14 RF: 0 fexofenadine 30 mg tablet,disintegrating 30 mg PO BID 5 Days Qty: 10 RF: 0 prednisone 20 mg tablet 20 mg PO DAILY 5 Days Qty: 5 RF: 0 famotidine [Pepcid] 20 mg tablet 20 mg PO BID 7 Days Qty: 14 RF: 0 Continue loratadine-pseudoephedrine [Claritin-D 24 Hour] 10-240 mg Tablet Extended Release 24 Hr 1 tab PO DAILY PRN (Reason: Allergy Symptoms) RF: 0 ibuprofen [Advil] 200 mg Tablet 400 mg PO Q6H PRN (Reason: Fever Or Pain) RF: 0 fluticasone 50 mcg/actuation spray,suspension 2 spray Intranasal DAILY RF: 0 Stand-Alone Forms: [facility] Discharge Orders: Discharge Order (Routine); Ordered 08/10/18 Ordered By: Lenin Becerril Admission Data Admit Date/Time: 08/08/18 20:55 Attending Provider: Lenin Becerril Admit Provider: Arvind Handley Primary Care Provider: PCP,NO Other Providers: Celestino Packer Service: Medical Other Interventions: Discharge Summary Assessment (RN) Last Done: 08/10/18 12:46 Pending Studies at Discharge: Yes Studies:: CMV Serology C1 Esterase inhibitor DC Date/Time DO NOT enter until pt leaves facility: 08/10/18 13:42
[2018-08-12 16:51] LABS: Epstein Barr Virus Early Ag Ab < 9.00 U/ML
== END 2018-08-10 13:42 | disposition home or self-care (01) ==
LOC: 3N 12:47 → ED 12:47 → 3N 22:06